=== PATIENT | male | born 1965 | race Caucasian/White ===

== ENCOUNTER 2023-02-23 10:01 | Outpatient (CLI) | payer OTHER, SELFPAY ==
--- NOTE | 2023-02-23 10:09 | EST_ITS ---
Patient Info Name: Aaliyah Dunham Age: 57 years : 1965 Gender: Male Ht: 67 in Wt: 230 lbs BSA: 2.26 m2 HR: 75 bpm BP: 153 / 92 mmHg Heart Rhythm: Sinus Rhythm Exam Date: 02/23/2023 10:56 AM Exam Location: Echo Lab Patient Status: Outpatient Admit Date: 02/23/2023 Staff Ordering Physician: David Liu MD Attending Provider: David Liu MD Exercise Technologist: Vania Xie CT Nurse: Carolyn Sargent APN Exam Type: CA stress test treadmill Study Info Indications R07.89 - Other chest pain A treadmill exercise stress test was performed. Summary 1. Exercise capacity fair to good at 6-10 METS. 2. Hypertensive blood pressure response to exercise. 3. Baseline artifact during exercise limits interpretation of ST-T wave segments, however, there are 0.5-1mm ST depressions in the inferior leads concerning for ischemic changes. 4. No symptoms reported during stress test. 5. Stress test supervised by Carolyn Sargent NP. Stress test interpreted by Gopal Ledbetter MD. Protocol: Cm Stress ECG Details Stage: REST Duration (min): 1 min : 36 sec Speed (mph): 0.0 Grade (%): 0 HR (bpm): 75 SBP (mmHg): --- DBP (mmHg): --- METS: --- Stage: REST Duration (min): 6 min : 42 sec Speed (mph): 0.0 Grade (%): 0 HR (bpm): 84 SBP (mmHg): --- DBP (mmHg): --- METS: --- Stage: STAGE 1 Duration (min): 1 min : 0 sec Speed (mph): 1.7 Grade (%): 10 HR (bpm): 111 SBP (mmHg): --- DBP (mmHg): --- METS: --- Stage: STAGE 1 Duration (min): 2 min : 0 sec Speed (mph): 1.7 Grade (%): 10 HR (bpm): 123 SBP (mmHg): --- DBP (mmHg): --- METS: --- Stage: STAGE 1 Duration (min): 3 min : 0 sec Speed (mph): 1.7 Grade (%): 10 HR (bpm): 127 SBP (mmHg): 210 DBP (mmHg): 77 METS: --- Stage: STAGE 2 Duration (min): 1 min : 0 sec Speed (mph): 2.5 Grade (%): 12 HR (bpm): 138 SBP (mmHg): 211 DBP (mmHg): 82 METS: --- Stage: STAGE 2 Duration (min): 1 min : 5 sec Speed (mph): 2.5 Grade (%): 12 HR (bpm): 139 SBP (mmHg): 211 DBP (mmHg): 82 METS: --- Stage: RECOVERY Duration (min): 0 min : 54 sec Speed (mph): 0.0 Grade (%): 0 HR (bpm): 112 SBP (mmHg): 217 DBP (mmHg): 78 METS: --- Stage: RECOVERY Duration (min): 1 min : 54 sec Speed (mph): 0.0 Grade (%): 0 HR (bpm): 89 SBP (mmHg): 217 DBP (mmHg): 78 METS: --- Stage: RECOVERY Duration (min): 2 min : 54 sec Speed (mph): 0.0 Grade (%): 0 HR (bpm): 91 SBP (mmHg): 191 DBP (mmHg): 70 METS: --- Stage: RECOVERY Duration (min): 3 min : 28 sec Speed (mph): 0.0 Grade (%): 0 HR (bpm): 86 SBP (mmHg): 191 DBP (mmHg): 70 METS: --- Rest HR: 84 bpm Peak HR: 141 bpm Peak Sys BP: 217 mmHg Max Pred HR: 163 bpm % Max Pred HR: 87 % Target HR: 139 bpm Max RPP: 30,597 bpm*mmHg Smalls Score: -2 Target HR Summary: Patient's target heart rate was achieved BP Response: Patient exhibited a hypertensive response with stress M
== END 2023-02-23 10:02 | disposition home or self-care (01) ==
LOC: ANHCARD 10:02
PROVIDERS: PCP Family Medicine; Visit Provider Family Medicine
DX: E78.2 Mixed hyperlipidemia (principal); I10 Essential (primary) hypertension; R07.9 Chest pain, unspecified
CPT/HCPCS: 93017

== ENCOUNTER 2023-10-10 10:49 | Emergency (ER) | payer OTHER, SELFPAY ==
--- NOTE | ~2023-10-10 | CT_ITS ---
EXAMINATION: CT abdomen pelvis wo con DATE: 10/10/2023 11:44 INDICATION: Flank pain and hematuria TECHNIQUE: Computed tomography (CT) of the abdomen and pelvis was performed without intravenous contr ast. Automated exposure control and iterative reconstruction technique were employed. The dose-length product was 1336.35 mGy-cm. COMPARISON: 03/02/2017 FINDINGS: Mild dependent atelectasis in bilateral lower lobes. Calcified right hilar lymph node and a multiple scattered tiny hepatic and splenic calcifications consistent with old granulomatous disease. Heart si ze is normal. No pericardial or pleural effusion. Small sliding-type hiatal hernia. Gallbladder, panc reas and bilateral adrenal glands are normal. 2 mm nonobstructing stone at a lower pole calyx of the right kidney. 7 x 5 x 4 mm obstructing stone at the left ureteropelvic junction with mild left hydron ephrosis and mild left perinephric stranding. No other urolithiasis. Bladder is normal. Bowels includ ing the appendix are normal. No free intraperitoneal gas or fluid. No pathologically enlarged abdomin al or pelvic lymphadenopathy. Mild scattered degenerative skeletal changes. IMPRESSION: 1. Bilateral nephrolithiasis with obstructing 7 x 5 x 4 mm stone at the left ureteropelvic junction w ith mild left hydronephrosis and perinephric stranding. Reviewed, dictated and finalized at location A. IMPRESSION: 1. Bilateral nephrolithiasis with obstructing 7 x 5 x 4 mm stone at the left ur eteropelvic junction with mild left hydronephrosis and perinephric stranding.
--- NOTE | 2023-10-10 11:11 | ED.BACK ---
HPI - Back Pain/Injury General Chief Complaint: Back Pain/Injury Stated Complaint: l flank pain Time Seen by Provider: 10/10/23 10:51 History of Present Illness HPI Narrative: 50-year-old male with history of kidney stones present to the emergency department for evaluation for left flank pain that feels consistent with his prior stones. Patient's last stone was approximately 2018 and he did pass it on his own. Patient states approximately 6:00 p.m. yesterday he had onset of left flank pain. Patient does describe associated nausea. Related Data Home Medications Medication Instructions Recorded Confirmed aspirin 81 mg tablet,delayed 81 mg PO DAILY 01/25/23 01/25/23 release (Adult Aspirin Regimen) Allergies Allergy/AdvReac Type Severity Reaction Status Date / Time loperamide AdvReac Intermediate Rash Verified 10/10/23 11:23 Review of Systems Review of Systems: All systems reviewed & are unremarkable except as noted in HPI and below PMFSH Past Medical History Medical History Body mass index 36.0-36.9, adult Chest pain Erectile dysfunction Exposure to COVID-19 virus Mixed hyperlipidemia NSAID long-term use Screening for prostate cancer Family History Family History Father Hypertension Family history of heart disease in male family member before age 55 Acute myocardial infarction Mother Hypertension Family history of lung cancer Family history of heart disease in male family member before age 55 Emphysema lung Breast cancer Grandparent Family history of malignant neoplasm of breast Sibling Cerebrovascular accident Aneurysm Social History Social History Smoking status: Never smoker Second hand tobacco smoke exposure: Yes Alcohol intake: current Substance use: never Substance use type: does not use Lack of Transportation: No Lack of Food: Never True Current Housing: I Have Housing Concerned About Future Housing: No Difficulty Paying Gas/Electric Bills: No Difficulty Paying for Meds: No Currently Unemployed: No Education: High School Diploma/GED Difficulty w/ Childcare or Family Care: No Living arrangements: with family Occupation/Education: occupation 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 EYES: PERRLA/EOMI, conjunctivae clear. NOSE: Normal no drainage EARS:TMS clear with good light reflex. THROAT: Pharynx clear, no exudate. NECK: Supple. No adenopathy, no masses. RESPIRATORY: Airway patent, respirations nonlabored. Clear to auscultation bilaterally, no rales, rhonchi, wheezing. CARDIOVASCULAR: Regular rate and rhythm without murmurs rubs or gallops. ABDOMINAL: Soft, nontender, nondistended, normal bowel sounds MUSCULOSKELETAL: Moves all extremities. Strength/ROM intact, No edema, No calf tenderness. NEURO: Alert. Cranial nerves II through XII intact. Grossly intact SKIN: Warm, dry. Normal Color Course Course Emergency Course: Patient was treated for ureteral calculi and was discharged home with Urology follow-up. Vital Signs Vital signs: Vital Signs Temperature 98.6 F 10/10/23 11:20 Pulse Rate 64 10/10/23 11:20 Respiratory Rate 18 10/10/23 11:20 Blood Pressure 152/83 H 10/10/23 11:20 Pulse Oximetry 100 10/10/23 11:20 Oxygen Delivery Room Air 10/10/23 11:20 Temperature 98.1 F 10/10/23 15:00 Pulse Rate 63 10/10/23 15:00 Respiratory Rate 18 10/10/23 15:00 Blood Pressure 155/90 H 10/10/23 15:00 Pulse Oximetry 99 10/10/23 15:00 Oxygen Delivery Room Air 10/10/23 11:20 MDM - Back Pain/Injury MDM Narrative Medical decision making narrative
[2023-10-10 11:20] VITALS: BP 152/83; PULSE 64; RESP 18; TEMP 37; O2SAT 100
[2023-10-10 11:25] LABS: Basophils Percent Auto 0.2 % (0.2-1.2); Eosinophils Percent Auto 0.2 % (0-4.4); Hematocrit 41.4 % (42.0-52.0); Hemoglobin 13.7 g/dL (14.0-18.0); Immature Granulocyte Absolute 0.03 K/mm3 (0.00-0.031); Immature Granulocyte Percent A 0.3 % (0-0.5); Lymphocytes Absolute Auto 0.86 K/mm3 (0.9-3.2); Lymphocytes Percent Auto 8.1 % (18.3-44.2); Mean Corpuscular HGB Conc 33.1 g/dl (32-36); Mean Corpuscular Hemoglobin 27.3 pg (26-34); Mean Corpuscular Volume 82.6 fl (80-100); Mean Platelet Volume 9.7 fl (7.4-10.4); Monocytes Absolute Auto 0.5 K/mm3 (0.1-0.6); Monocytes Percent Auto 4.7 % (2.6-8.5); Neutrophils Absolute Auto 9.2 K/mm3 (1.3-6.7); Neutrophils Percent Auto 86.5 % (45.5-73.1); Platelet Count Result 207 k/mm3 (150-375); Red Blood Count 5.01 M/mm3 (4.6-6.20); Red Cell Distribution Width 13.9 % (11.5-14.5); White Blood Count 10.6 K/mm3 (4.5-10.0)
[2023-10-10 11:29] LABS: Add Urine Microscopic? YES; Appearance Urine Clear (Clear); Bacteria Urine None Seen /hpf; Bilirubin Urine Negative (Negative); Blood Urine Non-Hemolyzed Trace (Negative); Color Urine Yellow (Yellow); Glucose Urine UA Negative (Negative); Ketones Urine Negative (Negative); Leukocyte Esterase Ur Negative LEU/UL (Negative); Nitrate Urine Negative (Negative); Non Pathogenic Casts 0-2; Protein Urine 1+ mg/dL (Negative); Specific Grav Ur 1.022 (1.001-1.035); Squamous Epithelial Cell Urine None Seen /hpf (Few); WBC Urine 0-5 /hpf (0-3)
[2023-10-10] MEDS: HYDROmorphone HCL INJ (*CRX) 1 MG/ML SYR IV PUSH (11:32)
[2023-10-10] MEDS: ONDANSETRON INJ 4 MG/2 ML VIAL IV PUSH (11:32)
[2023-10-10 11:43] LABS: Alanine Aminotransferase 19 U/L (6-50); Albumin Level 4.7 g/dL (3.5-5.1); Alkaline Phosphatase 70 U/L (38-126); Anion Gap 11 mmol/L (4-12); Aspartate Amino Transferase 28 U/L (17-59); Bilirubin,Total 0.9 mg/dL (0.2-1.3); Blood Urea Nitrogen 20 mg/dL (9-20); Carbon Dioxide 26 mmol/L (22-30); Chloride 102 mmol/L (98-107); Estimated CRCL calculation 78 ml/min; Estimated Glomerular Filt Rate > 60; Glucose 141 mg/dL (65-110); Potassium 3.7 mmol/L (3.4-5.0); Sodium 139 mmol/L (137-145)
[2023-10-10 12:30] VITALS: BP 140/77; PULSE 59; RESP 18; TEMP 36.6; O2SAT 97
[2023-10-10 13:30] VITALS: BP 150/80; PULSE 63; RESP 18; TEMP 36.8; O2SAT 97
[2023-10-10 14:23] VITALS: BP 151/84; PULSE 64; RESP 18; TEMP 36.8; O2SAT 98
[2023-10-10] MEDS: TAMSULOSIN HCL 0.4 MG CAPSULE PO (14:30)
[2023-10-10] MEDS: HYDROcodone/acetaminophen (*CRX) 5-325 MG TABLET 1 TAB PO (14:30)
[2023-10-10] MEDS: HYDROmorphone HCL INJ (*CRX) 1 MG/ML SYR 0.5 MG IV PUSH (14:30)
--- NOTE | 2023-10-10 14:58 | PC.NURSE ---
Pt states relief with last dose of pain meds. Denies nausea at this time.
[2023-10-10 15:00] VITALS: BP 155/90; PULSE 63; RESP 18; TEMP 36.7; O2SAT 99
== END 2023-10-10 15:03 | disposition home or self-care (01) ==
PROVIDERS: Emergency Provider Emergency Medicine; PCP Family Medicine
DX: N13.2 Hydronephrosis with renal and ureteral calculous obstruction (principal); Z87.442 Personal history of urinary calculi; E78.2 Mixed hyperlipidemia
CPT/HCPCS: 36415; 74176; 80053; 81001; 85025; 96374; 96375; 96376; 99284; A9270; J1170; J2405

== ENCOUNTER 2023-10-14 16:33 | Observation (INO) | payer OTHER, SELFPAY ==
--- NOTE | ~2023-10-14 | XR_ITS ---
EXAM: XR abdomen/kub 1V DATE: 10/14/2023 20:23 HISTORY: left sided stone . COMPARISON: CT abdomen pelvis, same date. FINDINGS: Clear lung bases. Normal bowel gas pattern. No organomegaly. 6 mm calcification projecting to the left of L3-4. Regional bones and soft tissues normal for age. IMPRESSION: 6 mm proximal left ureteral calcification. Reviewed, dictated and finalized at location K.
--- NOTE | ~2023-10-14 | CT_ITS ---
EXAMINATION: CT abdomen pelvis wo con DATE: 10/14/2023 18:50 INDICATION: L upj stone, worsening pain. TECHNIQUE: Computed tomography (CT) of the abdomen and pelvis was performed without intravenous contr ast. Automated exposure control and iterative reconstruction technique were employed. The dose-length product was 1019.18 mGy-cm. COMPARISON: 10/10/2023. FINDINGS: Lower thorax: Unremarkable Liver: Normal. Biliary/Gallbladder: Gallbladder is normal. No bile duct dilation. Pancreas: No mass or duct dilation. Spleen: Normal. Adrenals:No mass. Kidneys: 6 x 7 mm calcification in the proximal left ureter, having advanced several centimeters sinc e the prior exam. Similar mild left proximal hydronephrosis and perinephric stranding. No suspicious mass. Punctate nonobstructing calcification in the right lower pole.. GI tract: No small or large bowel dilation. Normal appendix. Mesentery/Peritoneum: No ascites, mass, or free air. Retroperitoneum: No mass. Pelvis: Pelvic organs are within normal limits. Soft Tissues: Soft tissues and body wall unremarkable. Bones: No acute osseous finding. IMPRESSION: Redemonstration of the calcification in the left collecting system, now in the proximal left ureter, having advanced only several centimeters since the prior examination. Reviewed, dictated and finalized at location K.
[2023-10-14 16:46] VITALS: BP 165/79; PULSE 74; RESP 17; TEMP 36.7; O2SAT 97
[2023-10-14 17:38] LABS: Basophils Percent Auto 0.3 % (0.2-1.2); Eosinophils Percent Auto 0.1 % (0-4.4); Hematocrit 41.5 % (42.0-52.0); Hemoglobin 13.5 g/dL (14.0-18.0); Immature Granulocyte Absolute 0.03 K/mm3 (0.00-0.031); Immature Granulocyte Percent A 0.3 % (0-0.5); Lymphocytes Percent Auto 8.7 % (18.3-44.2); Mean Corpuscular HGB Conc 32.5 g/dl (32-36); Mean Corpuscular Hemoglobin 26.8 pg (26-34); Mean Corpuscular Volume 82.3 fl (80-100); Mean Platelet Volume 9.9 fl (7.4-10.4); Monocytes Absolute Auto 0.6 K/mm3 (0.1-0.6); Monocytes Percent Auto 6.8 % (2.6-8.5); Neutrophils Absolute Auto 7.7 K/mm3 (1.3-6.7); Neutrophils Percent Auto 83.8 % (45.5-73.1); Platelet Count Result 207 k/mm3 (150-375); Red Blood Count 5.04 M/mm3 (4.6-6.20); Red Cell Distribution Width 13.4 % (11.5-14.5); White Blood Count 9.2 K/mm3 (4.5-10.0)
--- NOTE | 2023-10-14 17:45 | ED.ABDPAIN ---
HPI - Abdominal Pain General Chief Complaint: Urogenital-Male <JEAN PAUL Galvez Last Filed: 10/14/23 17:58> Stated Complaint: flank pain <JEAN PAUL Galvez Last Filed: 10/14/23 17:58> Time Seen by Provider: 10/14/23 17:45 <JEAN PAUL Galvez Last Filed: 10/14/23 17:58> Focused HPI: Patient is a 58 y/o male who presents to the ED with c/o L flank pain. Patient reports he was seen in the ED on Wednesday morning, diagnosed with 7 X 5 X 4 mm L UPJ stone. Pain was controlled in the ED and patient was discharged with norco/zofran/flomax. States pain became significantly worse today. Reports nausea, denies vomiting. Denies fever. Denies difficulty urinating. Denies hematuria. Patient does not currently follow with a urologist. GENERAL: Well-appearing, well-nourished, and in no acute distress. HEAD: Normocephalic, atraumatic. CHEST: Clear to auscultation. ?No respiratory distress. HEART: Regular rate and rhythm.? MSK: +TTP in L flank region. ABD: Mild TTP in L lower abdomen. NEURO: ?Alert and oriented x3. Patient screened in triage and initial orders placed.? ?Additional care and disposition to be based upon?diagnostic testing and treatment. <JEAN PAUL Galvez Last Filed: 10/14/23 17:58> Source: patient <JEAN PAUL Galvez Last Filed: 10/14/23 17:58> Mode of arrival: ambulatory <JEAN PAUL Galvez Last Filed: 10/14/23 17:58> Limitations: no limitations <JEAN PAUL Galvez Last Filed: 10/14/23 17:58> History of Present Illness HPI narrative: 58-year-old male presenting with left flank pain. States that he was here over the weekend and diagnosed with ureterolithiasis. His symptoms were well controlled so he was able to go home. Unfortunately, the pain returned today and was more severe than it has been. He denies fevers, abdominal pain, vomiting. Denies dysuria. <Caro Sarmiento MD - Last Filed: 10/16/23 14:32> Related Data Home Medications: Home Medications Medication Instructions Recorded Confirmed aspirin 81 mg tablet,delayed 81 mg PO HS 01/25/23 10/14/23 release (Adult Aspirin Regimen) amlodipine 5 mg tablet (Norvasc) 5 mg PO HS 10/14/23 10/14/23 meloxicam 15 mg tablet 15 mg PO HS 10/14/23 10/14/23 simvastatin 20 mg tablet 20 mg PO HS 10/14/23 10/14/23 tamsulosin 0.4 mg capsule (Flomax) 0.4 mg PO HS 10/14/23 10/14/23 <Vickie Hall PA-C - Last Filed: 10/14/23 17:58> Allergies/Adverse Reactions: Allergies Allergy/AdvReac Type Severity Reaction Status Date / Time loperamide AdvReac Intermediate Rash Verified 10/15/23 14:23 <Vickie Hall PA-C - Last Filed: 10/14/23 17:58> Review of Systems Review of Systems: All systems reviewed & are unremarkable except as noted in HPI and below <Caro Sarmiento MD - Last Filed: 10/16/23 14:32> [facility] Past Medical History Medical History: Medical History (Updated 10/16/23 @ 14:32 by Caro Sarmiento MD) Body mass index 36.0-36.9, adult Chest pain Erectile dysfunction Essential hypertension Exposure to COVID-19 virus Mixed hyperlipidemia NSAID long-term use Screening for prostate cancer <Vickie Hall PA-C - Last Filed: 10/14/23 17:58> Family History Family History: Family History Father Hypertension Family history of heart disease in male family member before age 55 Acute myocardial infarction Mother Hypertension Family history of lung cancer Family history of heart disease in male family member before age 55 Emphysema lung Breast cancer Grandparent Family history of malignant neoplasm of breast Sibling Cerebrovascular accident Aneurysm <Vickie Hall PA-C - Last Filed: 10/14/23 17:58> Social History Social History: Social History (Reviewed 10/14/23 @ 19:10 by Caro Castañeda
[2023-10-14 17:51] LABS: Alanine Aminotransferase 14 U/L (6-50); Albumin Level 4.5 g/dL (3.5-5.1); Alkaline Phosphatase 55 U/L (38-126); Anion Gap 11 mmol/L (4-12); Aspartate Amino Transferase 24 U/L (17-59); Bilirubin,Total 1.3 mg/dL (0.2-1.3); Blood Urea Nitrogen 15 mg/dL (9-20); Calcium 9.4 mg/dL (8.4-10.2); Carbon Dioxide 26 mmol/L (22-30); Chloride 97 mmol/L (98-107); Estimated CRCL calculation 64 ml/min; Estimated Glomerular Filt Rate 57; Glucose 114 mg/dL (65-110); Potassium 4.1 mmol/L (3.4-5.0); Sodium 134 mmol/L (137-145)
[2023-10-14 18:48] VITALS: BP 162/87; PULSE 66; RESP 21; TEMP 37.7; O2SAT 98
[2023-10-14] MEDS: SODIUM CHLORIDE 0.9% IV 1,000 ML 999 ML IV CONT (18:57)
[2023-10-14] MEDS: HYDROmorphone HCL INJ (*CRX) 1 MG/ML SYR 0.5 MG IV PUSH (18:57)
[2023-10-14 19:13] LABS: Add Urine Microscopic? NO; Appearance Urine Clear (Clear); Bilirubin Urine Negative (Negative); Blood Urine Negative (Negative); Color Urine Yellow (Yellow); Glucose Urine UA Negative (Negative); Ketones Urine Negative (Negative); Leukocyte Esterase Ur Negative LEU/UL (Negative); Nitrate Urine Negative (Negative); Protein Urine Negative (Negative); Specific Grav Ur 1.011 (1.001-1.035)
--- NOTE | 2023-10-14 20:13 | PM.IMHP ---
H&P: HPI History of Present Illness Date/Time: 10/14/23 20:13 Chief Complaint: Left flank pain Narrative: This is a 58-year-old male past medical history significant for hyperlipidemia, benign prostatic hyperplasia, hypertension, obesity. Patient presents to the emergency room with left flank pain for the 2nd time had been in the 1st time and prescribed pain medication and sent home however returns due to intractable pain with nausea, vomiting. Preliminary workup was significant for CT of abdomen and pelvis with left ureteral stone EXAMINATION: CT abdomen pelvis wo con DATE: 10/14/2023 18:50 INDICATION: L upj stone, worsening pain. TECHNIQUE: Computed tomography (CT) of the abdomen and pelvis was performed without intravenous contrast. Automated exposure control and iterative reconstruction technique were employed. The dose-length product was 1019.18 mGy-cm. COMPARISON: 10/10/2023. FINDINGS: Lower thorax: Unremarkable Liver: Normal. Biliary/Gallbladder: Gallbladder is normal. No bile duct dilation. Pancreas: No mass or duct dilation. Spleen: Normal. Adrenals:No mass. Kidneys: 6 x 7 mm calcification in the proximal left ureter, having advanced several centimeters since the prior exam. Similar mild left proximal hydronephrosis and perinephric stranding. No suspicious mass. Punctate nonobstructing calcification in the right lower pole.. GI tract: No small or large bowel dilation. Normal appendix. Mesentery/Peritoneum: No ascites, mass, or free air. Retroperitoneum: No mass. Pelvis: Pelvic organs are within normal limits. Soft Tissues: Soft tissues and body wall unremarkable. Bones: No acute osseous finding. IMPRESSION: Redemonstration of the calcification in the left collecting system, now in the proximal left ureter, having advanced only several centimeters since the prior examination. [facility] Past Medical History Medical History Body mass index 36.0-36.9, adult Chest pain Erectile dysfunction Exposure to COVID-19 virus Mixed hyperlipidemia NSAID long-term use Screening for prostate cancer Family History Family History Father Hypertension Family history of heart disease in male family member before age 55 Acute myocardial infarction Mother Hypertension Family history of lung cancer Family history of heart disease in male family member before age 55 Emphysema lung Breast cancer Grandparent Family history of malignant neoplasm of breast Sibling Cerebrovascular accident Aneurysm Social History Social History Smoking status: Never smoker Second hand tobacco smoke exposure: No Alcohol intake: never Substance use: never Substance use type: does not use Do You Feel Safe in your Home?: Yes Lack of Transportation: No Lack of Food: Never True Current Housing: I Have Housing Concerned About Future Housing: No Difficulty Paying Gas/Electric Bills: No Difficulty Paying for Meds: No Currently Unemployed: No Education: High School Diploma/GED Difficulty w/ Childcare or Family Care: No Living arrangements: with family Occupation/Education: occupation 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
[2023-10-14 21:36] VITALS: BP 126/74; PULSE 74; RESP 16; O2SAT 100
[2023-10-14 21:53] VITALS: BP 158/81; PULSE 66; RESP 20; TEMP 36.4; O2SAT 100
[2023-10-14 21:56] VITALS: BMI 35.5
--- NOTE | 2023-10-14 21:57 | ADMGEN ---
This patient, Aaliyah Dunham, was admitted to [facility] Surg Room 322-. Patient/family oriented to hospital policies and general routines including ID bracelet, bed and alarms, visiting hours, pain management, procedures, bathroom and other care routines, personal items, smoking policy, room service/diet, and visiting hours. Information on how to activate the Rapid Response Team has been discussed. Patient/Family are encouraged to report perceived risks to care and to ask questions if they do not understand what they are told or what they should do.
[2023-10-15] VITALS (7 sets, daily range): BP systolic 103–166; BP diastolic 52–85; PULSE 61–72; RESP 14–18; TEMP 36.7–37.4; O2SAT 95–100
[2023-10-15] MEDS: HYDROmorphone HCL INJ (*CRX) 1 MG/ML SYR IV PUSH ×2 (01:00→10:27)
[2023-10-15] MEDS: SODIUM CHLORIDE 0.9% IV 1,000 ML 100 ML IV CONT (06:21)
--- NOTE | 2023-10-15 08:28 | WPDURCON ---
Assessment and Plan Assessment and plan (1) Left ureteral calculus: Code(s): N20.1 - Calculus of ureter Status: Acute Assessment and Plan: 7 mm left proximal ureteral stone. Will plan for left ESWL today with Dr. Gaona. Continue NPO diet. Discussed risks versus benefits of procedure and he is agreeable to proceed. 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 Last dose 10/13/2023. Discussed potential risk of bleeding during procedure which will be carefully monitored Urology Consult Note HPI Date Seen: 10/15/23 Requesting Physician: Karlos Treadwell MD Primary Care Provider: David Liu MD Consult Narrative Narrative: Aaliyah Dunham is a 58 year old male with history of kidney stones and ED who is being seen in consultation for left ureteral stone. He initially presented to the ER on 10/09/2021 with complaints of left flank pain. At that time he was found to have a 7 mm left UPJ stone with mild left hydronephrosis. He had improvement in his pain and was discharged home with a course of tamsulosin and instructions for outpatient urologic follow-up. Unfortunately, his symptoms worsened and he again presented to the ER on 10/14/2023 with persistent left flank pain and nausea. On arrival to the ED, his vital signs were stable and he was afebrile, WBC within normal limits at 9.2, creatinine 1.3, UA unremarkable, and CT of the abdomen/pelvis again showed a 7 mm left ureteral stone, now in the proximal left ureter. KUB demonstrates visible left ureteral stone. At the time of my evaluation, he is feeling well. His pain has been well controlled. His nausea has resolved. He denies dysuria or hematuria. He has passed two prior stones spontaneously and has not required surgical intervention in the past. Discussed stone management options and will proceed with left ESWL today. Reviewed procedure with patient and he is agreeable to proceed. Review of Systems Review of Systems: All systems reviewed & are unremarkable except as noted in HPI and below PMFSH Past Medical History Medical History Body mass index 36.0-36.9, adult Chest pain Erectile dysfunction Exposure to COVID-19 virus Mixed hyperlipidemia NSAID long-term use Screening for prostate cancer Family History Family History Father Hypertension Family history of heart disease in male family member before age 55 Acute myocardial infarction Mother Hypertension Family history of lung cancer Family history of heart disease in male family member before age 55 Emphysema lung Breast cancer Grandparent Family history of malignant neoplasm of breast Sibling Cerebrovascular accident Aneurysm Social History Social History Smoking status: Never smoker Second hand tobacco smoke exposure: No Alcohol intake: never Substance use: never Substance use type: does not use Do You Feel Safe in your Home?: Yes Lack of Transportation: No Lack of Food: Never True Current Housing: I Have Housing Concerned About Future Housing: No Difficulty Paying Gas/Electric Bills: No Difficulty Paying for Meds: No Currently Unemployed: No Education: High School Diploma/GED Difficulty w/ Childcare or Family Care: No Living arrangements: with family Occupation/Education: occupation 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
--- NOTE | 2023-10-15 12:36 | WPDHPUPDATE1 ---
History and Physical Update Update Date/Time: 10/15/23 12:36 History and Physical has been reviewed, including an updated exam of the patient. There are NO changes in the patient's condition. Risks, benefits, and alternatives have been discussed and questions answered. Patient agrees to proceed with procedure.
--- NOTE | 2023-10-15 13:48 | WPDANESEPPF ---
Anes - Initial Pre Proc Eval Procedure: Operation Date: 10/15/23 15:00 Proposed Procedures p Left Extracorporeal Shock Wave Lithotripsy - Julian Gaona MD Date/Time: 10/15/23 13:48 Surgeon: Karlos Treadwell MD Pre Op Diagnosis: L ureteral stone Patient Data Age: 58 Gender: M Height: 1.73 m Weight: 106 kg Last Vital Signs Temp 37.4 C 10/15/23 05:15 Pulse 70 10/15/23 05:15 Resp 18 10/15/23 05:15 BP 166/82 H 10/15/23 05:15 Pulse Ox 95 10/15/23 05:15 O2 Del Method Room Air 10/15/23 08:00 Allergies Allergy/AdvReac Type Severity Reaction Status Date / Time loperamide AdvReac Intermediate Rash Verified 10/10/23 11:23 Home Medications Medication Instructions Recorded Confirmed Type aspirin 81 mg tablet,delayed 81 mg PO HS 01/25/23 10/14/23 History release (Adult Aspirin Regimen) sildenafil 100 mg tablet 100 mg PO DAILY PRN sexual 05/24/23 10/14/23 Rx activity #10 tabs hydrocodone 5 mg-acetaminophen 325 1 tablet PO Q12H PRN pain #14 tabs 10/10/23 10/14/23 Rx mg tablet ondansetron 4 mg disintegrating 4 mg PO Q8H PRN nausea and 10/10/23 10/14/23 Rx tablet vomiting #14 tabs amlodipine 5 mg tablet (Norvasc) 5 mg PO HS 10/14/23 10/14/23 History meloxicam 15 mg tablet 15 mg PO HS 10/14/23 10/14/23 History simvastatin 20 mg tablet 20 mg PO HS 10/14/23 10/14/23 History tamsulosin 0.4 mg capsule (Flomax) 0.4 mg PO HS 10/14/23 10/14/23 History Laboratory Tests 10/14/23 10/14/23 17:18 18:51 WBC 9.2 K/mm3 (4.5-10.0) RBC 5.04 M/mm3 (4.6-6.20) Hgb 13.5 L g/dL (14.0-18.0) Hct 41.5 L % (42.0-52.0) MCV 82.3 fl (80-100) MCH 26.8 pg (26-34) MCHC 32.5 g/dl (32-36) RDW 13.4 % (11.5-14.5) Plt Count 207 k/mm3 (150-375) MPV 9.9 fl (7.4-10.4) Immature Gran % (Auto) 0.3 % (0-0.5) Neut % (Auto) 83.8 H % (45.5-73.1) Lymph % (Auto) 8.7 L % (18.3-44.2) [place] % (Auto) 6.8 % (2.6-8.5) Eos % (Auto) 0.1 % (0-4.4) Baso % (Auto) 0.3 % (0.2-1.2) Lymph # (Auto) 0.80 L K/mm3 (0.9-3.2) [place] # (Auto) 0.6 K/mm3 (0.1-0.6) Eos # (Auto) 0.0 K/mm3 (0-0.3) Baso # (Auto) 0.0 K/mm3 (0.0-0.1) Abs Immat Gran (auto) 0.03 K/mm3 (0.00-0.031) Absolute Neuts (auto) 7.7 H K/mm3 (1.3-6.7) Absolute Nucleated RBC 0.000 K/mm3 (0.0-0.012) Nucleated RBC % 0.0 % (0.0-0.2) Sodium 134 L mmol/L (137-145) Potassium 4.1 mmol/L (3.4-5.0) Chloride 97 L mmol/L (98-107) Carbon Dioxide 26 mmol/L (22-30) Anion Gap 11 mmol/L (4-12) BUN 15 D mg/dL (9-20) Creatinine 1.30 mg/dL (0.7-1.3) Estim Creat Clear Calc 64 ml/min Estimated GFR 57 L (59 - ) Glucose 114 H mg/dL (65-110) Calcium 9.4 mg/dL (8.4-10.2) Total Bilirubin 1.3 mg/dL (0.2-1.3) AST 24 U/L (17-59) ALT 14 U/L (6-50) Alkaline Phosphatase 55 U/L (38-126) Total Protein 8.0 g/dL (6.3-8.2) Albumin 4.5 g/dL (3.5-5.1) Urine Color Yellow (Yellow) Urine Appearance Clear (Clear) Urine pH 6.0 (5.0-9.0) Ur Specific [place] 1.011 (1.001-1.035) Urine Protein Negative mg/dL (Negative) Urine Glucose (UA) Negative mg/dL (Negative) Urine Ketones Negative mg/dL (Negative) Ur Blood (Man) Negative (Negative) Urine Nitrate Negative (Negative) Urine Bilirubin Negative (Negative) Urine Urobilinogen 1.0 mg/dL (<2.0) Leukocyte Esterase Rfl Negative TRENT/UL (Negative) Patient hx anesthesia problems: none Family hx anesthesia problems: none Results Review: All pre-operative results and documents have been reviewed as part of the pre-operative evaluation. [facility] Past Medical History Medical History (Updated 10/15/23 @
[2023-10-15] MEDS: LACTATED RINGERS 1,000 ML 30 ML IV CONT (14:00)
[2023-10-15] MEDS: ceFAZolin 2 GM/D5W 50 ML 2 GM/50 ML BAG IVPB (14:30)
--- NOTE | 2023-10-15 15:19 | W.PM.PROC2 ---
Procedure Note - Detailed Date of Procedure 10/15/23 Pre-op Diagnosis L ureteral stone Post-op Diagnosis Same Procedure Performed Left ESWL Surgeon Julian Gaona MD Anesthesia General Description of Procedure The patient was brought to the operative suite where he was placed in the supine position on the Dornier lithotripsy table. The focal point of the lithotripter was placed at a 6-7mm left mid-ureteral calculus. A total of 2500 shocks were delivered at a power setting of 4. There appeared to be good fragmentation of the stone. The patient tolerated the procedure well and was taken to the recovery room in good condition. Urine Output 1,400 Drains No Packing No Pathology None sent Complications No immediate complications Condition Stable Disposition PACU
--- NOTE | 2023-10-15 16:32 | PM.DS ---
DS: Admitting Diagnosis Discharge Date 10/15/23 Admitting Diagnosis Acute left flank pain left ureteral calculus Body mass index 36.0-36.9 Essential hypertension DS: Discharge Diagnosis Discharge Diagnosis (1) Left ureteral calculus: Code(s): N20.1 - Calculus of ureter Status: Acute (2) NSAID long-term use: Code(s): Z79.1 - halfway (current) use of non-steroidal anti-inflammatories (NSAID) Status: Acute DS: Summary Hospital Course Reason for hospitalization: Acute left flank pain left ureteral calculus Body mass index 36.0-36.9 Essential hypertension Hospital Course: This is a 58-year-old male who presented to the hospital on 10/14/2023 with complaint of left flank pain. Workup in the hospital included an abdomen pelvis CT which shown calcification in the left collecting system now in the proximal left ureter having advanced only several cm since the prior examination. Abdomen x-ray showed a 6 mm proximal left ureteral calcification. Initial labs showed a white blood cell count of 9.2, hemoglobin 13.5, sodium 134, chloride 97, EGFR 57. UA was obtained and was negative. Patient was given 1 L of normal saline, Ancef, and dilaudid while in the ED. urology was consulted and took patient for Left ESWL, no stent placement. He is stable for discharge at this time. He will need to follow up with Urologyon outpatient basis. Final diagnosis: Left ureteral calculus Status at Discharge Cognitive/behavioral status at discharge: Alert oriented x3 Functional status at discharge: independent ambulation Overall status at discharge: patient is progressing back to baseline Time Spent with Patient Time attestation: Total time spent providing and/or coordinating discharge services: Time spent: Greater than 30 minutes Exam Narrative: General: In no acute distress, well nourished Head: atraumatic, no encephalopathy Eyes: EOMI, PERRLA, sclera clear ENT: moist mucous membranes, nasal passages clear Neck: supple, no JVD, no adenopathy, trachea midline Cardiac: Normal S1 and S2. No murmur, gallops or friction rubs, peripheral pulses intact. Respiratory: Lungs clear to auscultation, no adventitious lung sounds Gastrointestinal: soft, non-distended, non-tender, normoactive bowel sounds. : voiding without difficulty. Extremities: moves all extremities well, no edema, good ROM, strength 5/5 Skin: clean, dry, intact. No wounds or lesions. Neuro: Alert and oriented x4, cranial nerves intact, no neuro deficits. Psych: normal mood, normal affect, interactive DS: Data Data Completed and Pending Completed studies during hospitalization: Abdomen x-ray Abdomen/pelvis CT Pending studies at discharge: None Labs on day of discharge: Labs from last 24 hours 10/14/23 10/14/23 18:51 17:18 WBC 9.2 RBC 5.04 Hgb 13.5 L Hct 41.5 L MCV 82.3 MCH 26.8 MCHC 32.5 RDW 13.4 Plt Count 207 MPV 9.9 Immature Gran % (Auto) 0.3 Neut % (Auto) 83.8 H Lymph % (Auto) 8.7 L [place] % (Auto) 6.8 Eos % (Auto) 0.1 Baso % (Auto) 0.3 Lymph # (Auto) 0.80 L [place] # (Auto) 0.6 Eos # (Auto) 0.0 Baso # (Auto) 0.0 Abs Immat Gran (auto) 0.03 Absolute Neuts (auto) 7.7 H Absolute Nucleated RBC 0.000 Nucleated RBC % 0.0 Sodium 134 L Potassium 4.1 Chloride 97 L Carbon Dioxide 26 Anion Gap 11 BUN 15 D Creatinine 1.30 Estim Creat Clear Calc 64 Estimated GFR 57 L Glucose 114 H Calcium 9.4 Total Bilirubin 1.3 AST 24 ALT 14 Alkaline Phosphatase 55 Total Protein 8.0 Albumin 4.5 Urine Color Yellow Urine Appearance Clear Urine pH 6.0 Ur Specific [place] 1.011 Urine Protein Negative Urine Glucose (UA) Negative Urine Ketones Negative Ur Blood (Man) Negative Urine Nitrate Negative Urine Bilirubin Negative Urine Urobilinogen 1.0 Leukocyte Esterase Rfl Negative Procedures/Treatments: Left ESWL Discharge Plan Discharg
== END 2023-10-15 18:04 | disposition home or self-care (01) ==
LOC: ANHED 18:09 → ANH3MEDSUR 21:24
PROVIDERS: Urology; Admitting Provider Internal Medicine; Emergency Provider Emergency Medicine; PCP Family Medicine; Visit Provider Internal Medicine
PROC: (CPT 50590; principal; 2023-10-15 15:00)
DX: N20.1 Calculus of ureter (principal); I10 Essential (primary) hypertension; E78.2 Mixed hyperlipidemia; Z79.82 Long term (current) use of aspirin; E66.9 Obesity, unspecified; Z68.35 Body mass index [BMI] 35.0-35.9, adult; N40.0 Benign prostatic hyperplasia without lower urinary tract symptoms; N52.9 Male erectile dysfunction, unspecified
CPT/HCPCS: 50590; 36415; 74018; 74176; 80053; 81003; 85025; 96361; 96374; 96376; 99285; G0378; J0690; J1170; J2250; J2371; J2405; J2704; J3010; J7030; J7120

== ENCOUNTER 2023-12-01 14:43 | Outpatient (CLI) | payer OTHER, SELFPAY ==
--- NOTE | ~2023-12-01 | XR_ITS ---
XR abdomen/kub 1V Ordering provider: Julian Gaona MD History: . Hx of kidney stones . Comparison: October 14, 2023 FINDINGS: BOWEL: Nonobstructive bowel gas pattern. ORGANOMEGALY: None. SIGNIFICANT PATHOLOGIC CALCIFICATIONS: None. OTHER: No free air is seen under the diaphragm. IMPRESSION: NO ACUTE ABDOMINAL FINDINGS. If still clinically suspicious noncontrast CT is advised. Reviewed, dictated and finalized at location A.
== END 2023-12-01 14:44 | disposition home or self-care (01) ==
LOC: MICIMG 14:44
PROVIDERS: PCP Family Medicine; Visit Provider Urology
DX: Z87.442 Personal history of urinary calculi (principal)
CPT/HCPCS: 74018

== ENCOUNTER 2024-05-31 14:36 | Outpatient (CLI) | payer OTHER, SELFPAY ==
--- NOTE | ~2024-05-31 | XR_ITS ---
XR abdomen/kub 1V Ordering provider: Julian Gaona MD History: . Hx of kidney stones . Comparison: None. FINDINGS: BOWEL: Nonobstructive bowel gas pattern. ORGANOMEGALY: None. SIGNIFICANT PATHOLOGIC CALCIFICATIONS: None. OTHER: No free air is seen under the diaphragm. Degenerative changes of the spine. Bilateral mild hip osteoarthritic changes. IMPRESSION: NO ACUTE ABDOMINAL FINDINGS. No definite stones seen. Noncontrast CT is better for evaluation. Reviewed, dictated and finalized at location A.
== END 2024-05-31 14:37 | disposition home or self-care (01) ==
LOC: MICIMG 14:37
PROVIDERS: PCP Family Medicine; Visit Provider Urology
DX: Z87.442 Personal history of urinary calculi (principal)
CPT/HCPCS: 74018